=== PATIENT | female | born 1985 | race Caucasian/White ===

== ENCOUNTER 2021-02-09 21:20 | Inpatient (IN) | payer BC ==
[~2021-02-09] VITALS: Ht 157.5 cm; Wt 68.0 kg
[~2021-02-09 21:20] MED LIST: BENTYL 20MG TAB20 MG PO; COLACE 100MG C100 MG PO; IBUPROFEN600 MG PO; KEFLEX CAP 500500 MG PO; LORTAB 5-325 M1 EACH PO; PRENATAL VITAM1 EAC5 PO; REGLAN10 MG PO
[2021-02-10 01:33] LABS: HEMOGLOBIN 9.8 gm/dl (12.3-15.3); RED BLOOD COUNT 3.86 M/UL (4.00-5.10); WHITE BLOOD COUNT 16.8 K/UL (4.5-11.0)
[2021-02-11 03:41] LABS: HEMOGLOBIN 9.1 gm/dl (12.3-15.3)
[2021-02-11] MEDS ORDERED: IBUPROFEN800 MG PO (11:36)
[2021-02-11] MEDS ORDERED: DOCUSATE SODIU100 MG PO (11:36)
== END 2021-02-11 13:07 | disposition home or self-care (01) | DRG 807 ==
LOC: GENOP 21:20 → OB 02-10
PROVIDERS: ADMIT Obstetrics & Gynecology
PROC: 10E0XZZ Delivery of Products of Conception, External Approach (ICD-10-PCS; principal; 2021-02-10)
PROC: 0UQMXZZ Repair Vulva, External Approach (ICD-10-PCS; 2021-02-10)
DX: O99.02 Anemia complicating childbirth (principal); Z37.0 Single live birth; D64.9 Anemia, unspecified; Z3A.39 39 weeks gestation of pregnancy; O70.0 First degree perineal laceration during delivery; Z20.822 Contact with and (suspected) exposure to COVID-19
CPT/HCPCS: 36415; 82800; 85014; 85018; 85025; 90471; 90715; J2405; J2590; J3010; J7120